=== PATIENT | male | born 1975 | race Caucasian/White ===

== ENCOUNTER 2021-04-10 16:38 | Emergency (ER) | payer OTHER ==
[~2021-04-10 16:38] MED LIST: BACTRIM DS1 TAB PO; EC-NAPROSYN500 MG PO; MEDDOSEPAK OR
[2021-04-10 18:09] VITALS: BP 130/70
== END 2021-04-10 18:12 | disposition home or self-care (01) | DRG 179 ==
LOC: ED 16:38
DX: U07.1 COVID-19 (principal)